=== PATIENT | male | born 1960 | race Caucasian/White ===

== ENCOUNTER → 2017-03-13 | Outpatient (CLI) | payer OTHER ==
[~2017-03-13] MED LIST: AMLO10TA4 PO; AMLO5TAB2 PO; ASPI-496 PO; CARV12.543 PO; CLOP75TA PO; NITR0.4T SL; OMNIPAQUE 350 MG/ML, 100ML BOTTLE ONE; ROSU10TA PO; TELM80TA PO; UBIQ100C3 PO
== END | disposition home or self-care (01) ==
LOC: CFH 08:47
PROVIDERS: ATTEND Nurse Practitioner Family
DX: N53.19 Other ejaculatory dysfunction (principal)
CPT/HCPCS: 72193; Q9967

== ENCOUNTER → 2020-01-28 | Outpatient (CLI) | payer OTHER ==
[~2020-01-28] MED LIST changes: +AMLO-150 PO; -AMLO5TAB2 PO; -NITR0.4T SL; +NITR0.4T41 SL; -OMNIPAQUE 350 MG/ML, 100ML BOTTLE ONE; -ROSU10TA PO; +ROSU10TA2 PO
== END | disposition home or self-care (01) ==
LOC: CFH 09:50
PROVIDERS: ATTEND Internal Medicine Cardiovascular Disease
DX: I08.1 Rheumatic disorders of both mitral and tricuspid valves (principal); I21.29 ST elevation (STEMI) myocardial infarction involving other sites; I25.10 Atherosclerotic heart disease of native coronary artery without angina pectoris; I10 Essential (primary) hypertension
CPT/HCPCS: 78452; 93017; 93306; A9502